=== PATIENT | male | born 1970 | race Caucasian/White ===

== ENCOUNTER → 2016-06-02 | Outpatient (CLI) | payer BC ==
[~2016-06-02] MED LIST: BACL20TA PO; CYCL10TA6 PO; HYDR-4079 PO; LANS30CA12 PO; MELO7.5T5 PO; MULT-506 PO; OXYC-57 PO; TEMA15CA4 PO; TEMA30CA4 PO
[2016-06-02 11:43] LABS: BASO % 0.3 %; BASO ABS # 0.03 K/uL (0-0.2); COMPLETE YES; EOS % 2.4 %; HEMATOCRIT 39.9 % (42-52); IG% 0.1 %; LYMPH % 20.6 %; LYMPH ABS # 1.86 K/uL (1.2-3.4); MEAN CELL VOLUME 94.1 fL (80-100); MEAN CORPUSCULAR HEMOGLOBIN 32.3 pg (25-34); MEAN CORPUSCULAR HGB CONC 34.3 g/dl (32-36); MEAN PLATELET VOLUME 8.8 fL (7.4-10.4); MONO % 5.8 %; NEUT % 70.8 %; PLATELET COUNT 221 K/uL (130-400); RED BLOOD COUNT 4.24 M/uL (4.7-6.1); WHITE BLOOD COUNT 9.03 K/uL (4.8-10.8)
[2016-06-02 11:54] LABS: BLOOD UREA NITROGEN 8 mg/dl (7-18); BUN/CREATININE RATIO 12.7 (10-20); CALCIUM 8.7 mg/dl (8.5-10.1); CARBON DIOXIDE 30 mmol/L (21-32); CHLORIDE 107 mmol/L (98-107); CREATININE 0.67 mg/dl (0.60-1.40); GLUCOSE 88 mg/dl (70-99); POTASSIUM 4.2 mmol/L (3.5-5.1); SODIUM 143 mmol/L (136-145)
== END | disposition home or self-care (01) ==
LOC: C.LABBC 08:57
PROVIDERS: ATTEND Orthopaedic Surgery
DX: M12.511 Traumatic arthropathy, right shoulder (principal)

== ENCOUNTER → 2016-06-05 | Day surgery (SDC) | payer OTHER, BC ==
[2016-06-02 15:38] VITALS: BMI 33.0
--- NOTE | 2016-06-04 19:55 | HISTORY & PHYSICAL EXAMINATION ---
DATE OF ADMISSION: 06/05/2016 CHIEF COMPLAINT: Subscapularis insufficiency of the right shoulder. HISTORY OF PRESENT ILLNESS: Naresh is a pleasant 46-year-old male, who initially injured his shoulder in 2001 and underwent ORIF with placement of two screws. Unfortunately, he went on to develop a malunion and development of traumatic arthritis. I did a right total shoulder arthroplasty on him three months ago, in January 2016. Unfortunately, on postoperative x-rays, it seems like the humeral head is slightly subluxated anteriorly and he has not been able to regain the range of motion that I had liked. Exam and x-rays were very suspicious for a subscapularis tendon rupture. After discussions with him, he has elected to proceed with a revision subscapularis repair and possible revision shoulder arthroplasty. PAST MEDICAL HISTORY: Significant for history of blood clot. MEDICATIONS: Include aspirin 81 mg daily, ferrous sulfate 325 mg twice a day, methocarbamol 750 mg twice a day, omeprazole 20 mg daily, cyclobenzaprine 10 mg twice a day and temazepam 45 mg daily. PAST SURGICAL HISTORY: Significant for ORIF of the right tib-fib, right shoulder ORIF in 2001, gastric bypass procedure and a right total shoulder arthroplasty in January 2016. ALLERGIES: PENICILLIN. FAMILY HISTORY: Noncontributory. SOCIAL HISTORY: He is , has 2 children. Rarely drinks. Smokes a pack a day for 35 years. Tries to remain active. REVIEW OF SYSTEMS: He complains of right shoulder weakness. All other pertinent review of systems are negative. PHYSICAL EXAMINATION: GENERAL: He is awake, alert and oriented x3. He is in no apparent distress. He is very pleasant. HEENT: Pupils are equal, round and reactive to light. Extraocular motions are intact. Oral mucosa is pink and moist. HEART: Regular rate per radial pulse. LUNGS: Mayra symmetrically bilaterally with no audible breath sounds. ABDOMEN: Soft, nontender and nondistended. MUSCULOSKELETAL: On physical examination of the shoulder, his incision is well-healed. He is neurovascularly intact. His radial, median, ulnar and axillary nerves were all intact. The anterior deltoid was a little bit weak, looks to be subluxated anteriorly. He only has about 30 degrees of active forward elevation and he really struggles. X-rays of the shoulder looked fairly good on the AP and lateral views, however, on the axillary view there is about 50% anterior subluxation of the humeral head of the glenoid. IMPRESSION: Subscapularis insufficiency of the right shoulder. PLAN: We will proceed with an open subscapularis repair with possible revision of the humeral component. Postoperatively, he will be placed in an arm sling and discharged to home on oral pain medications.
[~2016-06-05] VITALS: Ht 177.8 cm; Wt 104.4 kg
[~2016-06-05] MED LIST changes: +ACETAMINOPHEN 500 MG TAB PO SCH; +ATROPINE SULFATE 0.1 MG/ML 5ML SYR IV PRN; +BUPIVACAINE 0.25% W/EPI 1:200,000 INJ ONE; +BUPIVACAINE/EPINEPHRINE 0.25% 1:200,000 30 ML VIAL ONE; +CLINDAMYCIN 600 MG/54 ML D5W 54 ML IV SCH; +DEXAMETHASONE SOD INJ 4 MG/ML VIAL ONE; +EpHEDrine SULFATE INJ 50 MG/ML AMP IV PRN; +EpHEDrine SULFATE INJ 50 MG/ML AMP ONE; +FAMOTIDINE 20 MG TAB PO SCH; +FENTANYL CITRATE INJ 50 MCG/1 ML 2 ML VIAL IV PRN; +FENTANYL CITRATE INJ 50 MCG/1 ML 2 ML VIAL ONE; +GABAPENTIN 300 MG CAP PO SCH; +GLYCOPYRROLATE INJ 0.2 MG/ML VIAL ONE; +HYDROmorphone INJ 1 MG/ML SYR IV PRN; +LACTATED RINGER'S 1000ML IV SCH; +LIDOCAINE HCL 2% 2 ML VIAL (20MG/ML) ONE; -MELO7.5T5 PO; +MIDAZOLAM HCL 1 MG/ML 2ML VIAL ONE; +NEOSTIGMINE METHYLSULFATE 5 MG/5 ML SYR ONE; +ONDANSETRON INJ 2 MG/ML 2 ML VIAL IV PRN; +ONDANSETRON INJ 2 MG/ML 2 ML VIAL ONE; +OXYCODONE/ACETAMINOPHEN 5-325 TAB PO PRN; +PHENYLEPHRINE HCL INJ 10 MG/ML VIAL ONE; +PROPOFOL IV EMULSION 10 MG/ML 20 ML VIAL IV ONE; +ROPIVACAINE 0.5% 5 MG/ML 30 ML VIAL ONE; +SODIUM CHLORIDE 0.9% 1000ML 1,000 ML IV SCH; +SUCCINYLCHOLINE CHLORIDE 20 MG/ML 10 ML VIAL IV ONE
[2016-06-05 11:42] VITALS: BP 147/96; PULSE 73; TEMP 36.8; O2SAT 97; Ht 177.8 cm; Wt 104.4 kg
--- NOTE | 2016-06-05 11:49 | History & Physical Bridge Note ---
H&P Re-Evaluation Bridge Note: I have examined the patient, reviewed the History & Physical and in the interval since the performance of the History & Physical I have noted the following changes of clinical significance: No changes noted
--- NOTE | 2016-06-05 16:29 | [facility] Post Operative Brief Note ---
Immediate Operative Summary Operative Date Jun 05, 2016. Pre-Operative Diagnosis Subscapularis insufficiency of the right shoulder Post-Operative Diagnosis Subscapularis insufficiency of the right shoulder Procedure(s) Performed Right Shoulder Open Rotator Cuff Repair with Hardware Exchange Surgeon Dr. Naresh Meyer Operators Teacher Surgeon(s) Vin Graham PA-C Estimated Blood Loss 100mL Findings as above Specimens Specimen A. Explanted Femoral Hardware Complication(s) None Disposition Recovery Room / PACU
--- NOTE | 2016-06-05 16:50 | Discharge Instructions ---
Discharge Instructions Admission Reason for Admission: Right Shoulder Traumatic Arthropathy, Jt Pain, Ful Discharge Discharge Diagnosis / Problem: HARDWARE EXCHANGE, ROTATOR CUFF REPAIR RIGHT SHOULDER Discharge Goals Goal(s): Decrease discomfort, Improve function, Increase independence Activity Recommendations Activity Limitations: as noted below Lifting Limitations: until after follow-up appointment Exercise/Sports Limitations: until after follow-up appointment Shower/Bathe: may shower/bathe in 3 days NO USE OF THE RIGHT ARM . Instructions / Follow-Up Instructions / Follow-Up MEDICATIONS: * Resume previous medications unless instructed otherwise by your surgeon. * Always take pain medication on a full stomach or with food to avoid upset stomach. * Do not drink alcohol or drive while taking narcotics. * Ibuprofen or Tylenol may be taken if narcotic not needed. SPECIAL CARE INSTRUCTIONS: __ None _X_ Keep extremity elevated and iced x 48 hours; apply ice 20-30 minutes 8-10 times/day. May remove at night. _X_ Sling (MAY REMOVE AFTER 3 DAYS ONLY TO SHOWER) _X_24 hrs/day __ Remove at night __ Shoulder Immobilizer __ 24 hrs/day __ Remove at night _X_ Dressing __ Maintain until seen in office, may shower with plastic over site _X_ Remove dressings in 3 DAYS. ONLY REMOVE THE CLEAR DRESSING AND WHITE BANDAGES THERE WILL BE A LAYER DIRECTLY AGAINST THE SKIN. DO NOT REMOVE _X_ Cover incisions with band-aids after showering __ Do not remove steri-strips Call physician if chills or temperature rises above 102 degrees or pain unrelieved by prescribed pain medications at . . Current Hospital Diet Patient's current hospital diet: Discharge Diet Recommended Diet: Regular Diet Fluid Restriction: None Procedures Procedures Performed: Right Shoulder Open Rotator Cuff Repair with Hardware Exchange Pending Studies Studies pending at discharge: no Work Instructions Return To Work: after follow-up Lifting Limitations: NO LIFTING WITH RIGHT ARM Medical Emergencies . Who to Call and When: Medical Emergencies: If at any time you feel your situation is an emergency, please call 911 immediately. . Non-Emergent Contact Non-Emergency issues call your: Primary Care Provider Call Non-Emergent contact if: you have a fever, temperature is above 101.5 . "Provider Documentation" section prepared by Jf Graham. VTE Core Measure Inpt VTE Proph given/why not?: SCD's
[2016-06-05 17:30] VITALS: BP 137/76; PULSE 76; TEMP 36.4; O2SAT 93
--- NOTE | 2016-06-05 17:41 | Anesthesiology Progress Note ---
Anesthesia Post Op Note Date & Time Jun 05, 2016 at 17:41 Vital Signs Pain Intensity: 0 Vital Signs Past 12 Hours Date Time Temp Pulse Resp B/P Pulse Ox O2 Delivery O2 Flow Rate FiO2 06/05/16 17:12 36.5 74 19 125/67 95 Nasal Cannula 10 06/05/16 17:09 88 22 123/72 94 06/05/16 17:09 87 22 06/05/16 17:04 82 20 06/05/16 17:04 83 20 94 06/05/16 17:03 81 20 120/72 06/05/16 17:03 20 06/05/16 16:59 127/69 06/05/16 16:58 81 18 06/05/16 16:58 81 18 95 06/05/16 16:54 126/68 06/05/16 16:53 78 23 06/05/16 16:53 78 23 97 06/05/16 16:49 96/76 06/05/16 16:48 78 22 06/05/16 16:48 36.9 78 16 130/75 100 Mask 10 06/05/16 16:48 80 22 98 06/05/16 11:42 36.8 73 20 147/96 97 Room Air Notes Mental Status: alert / awake / arousable, participated in evaluation Pt Amnestic to Procedure: Yes Nausea / Vomiting: adequately controlled Pain: adequately controlled Airway Patency, RR, SpO2: stable & adequate BP & HR: stable & adequate Hydration State: stable & adequate Anesthetic Complications: no major complications apparent
[2016-06-05 18:00] VITALS: BP 160/78; PULSE 88; O2SAT 97
[2016-06-05 18:30] VITALS: BP 127/73; PULSE 92; TEMP 36.5; O2SAT 97
--- NOTE | 2016-06-05 20:46 | OPERATIVE REPORT ---
DATE OF OPERATION: 06/05/2016 PREOPERATIVE DIAGNOSIS: Failed rotator cuff, status post total shoulder arthroplasty of the right shoulder. POSTOPERATIVE DIAGNOSIS: Same. PROCEDURE: Right shoulder removal of hardware with exchange of humeral head and revision open rotator cuff repair. SURGEON: Dr. Naresh Meyer. POULTRY HELPER: Vin Graham PA-C, whose assistance was necessary for positioning the arm and helping with instrumentation. ANESTHESIA: General with a right interscalene nerve block. COMPLICATIONS: None. CONDITION: Stable to PACU. INDICATIONS: Andreea is a pleasant 46-year-old male who fractured his right shoulder about 15 years ago. He underwent ORIF and he had a slight malunion. There was an impaction of the humeral head. He went on to develop posttraumatic arthritis in his shoulder and he elected to undergo a shoulder arthroplasty. In January 2016, I took him to the OR and did a standard total shoulder arthroplasty. I was able to get complete repair of the rotator cuff at that time. Unfortunately, postoperatively he has not been able to regain any forward elevation. When I see him elevate in the office, he seems to have anterior superior escape. That was also evident on his x-rays. He elected to undergo revision rotator cuff repair and possible humeral head exchange. DESCRIPTION OF PROCEDURE: On 06/05/2016 he arrived at [facility] for the above procedure. He was seen in the preoperative holding area and the operative extremity was identified and signed. A preoperative antibiotic and a right interscalene nerve block. He was taken back to the operating room, laid on the table in supine position and put under general anesthesia. He was then put into the beachchair position. The right shoulder was prepped and draped in sterile fashion. Time-out was done and the patient and operative extremity was properly identified. The deltopectoral incision was once again opened up. Dissection was taken down through the fascia and there was a significant amount of scar tissue between the deltoid and the pec. Time was spent releasing all the scar tissue, most of it had to be released with sharp dissection. Then there was a significant amount of scar tissue in the subdeltoid area and in the subacromial area. There is also a lot of scar in the subcoracoid area and around the conjoined tendons. A significant time greater than an hour was spent just doing complete releases of all the scar tissue. Once all the scar tissue was released, the humeral head was exposed and removed. I then was able to grab control the rotator cuff. It was a complete anterior, superior rotator cuff tear involving the superior two-thirds of the subscapularis and a significant portion of the supraspinatus. It appeared to be mostly delaminated type tear of the supraspinatus. A Biomet size 44 x 15 humeral head was trialled and it seemed to be a better fit than the 46 x 18 mm head that was in there previously. A final 44 x 15 mm head was then impacted into place. The shoulder was reduced. The supraspinatus was tightened up with a couple of #2 FiberWire sutures. There were no tears off the tuberosity and no need to use any suture anchors. Attention was then turned to the subscapularis. There was very little bone to work with and I did not want to remove the stem. The subscapularis was fixed with an Arthrex rip-stop technique. Two FiberTapes were passed through the tendon in a mattress fashion. The FiberTapes about then brought down to far lateral 4.75 mm BioComposite SwiveLock suture anchors. This gave an excellent repair. Three FiberWire sutures total were passed through the cuff and then through the bone of the lesser tuberosity. These were then tied down. A single stitch was placed laterally between the subscapularis and the supraspinatus. All tails were cut. The wound was then irrigated with 3 liters of normal saline solution. I was then able to raise his arm and elevate his shoulder without any anterior superior escape. He was able to have external rotation to about 15 degrees before there was any significant tension on the repair. The surrounding soft tissues were then injected with 0.25% Marcaine with epinephrine. The skin was closed with 2-0 Vicryl and a 3-0 V-Loc suture. A Prineo dressing was placed. He was then placed in an additional soft dressing and regular arm sling. He was then extubated, transferred to a litter and taken to the postanesthesia care unit in stable condition. He tolerated the procedure well. I attest to the content of the Intraoperative Record and any orders documented therein. Any exceptio ns are noted below.
== END | disposition home or self-care (01) ==
LOC: EEVIPCON 10:54 → C.ACU 10:54
PROVIDERS: ATTEND Orthopaedic Surgery
DX: M75.41 Impingement syndrome of right shoulder (principal); M12.511 Traumatic arthropathy, right shoulder; F17.210 Nicotine dependence, cigarettes, uncomplicated; Z98.84 Bariatric surgery status; Z98.890 Other specified postprocedural states